=== PATIENT | female | born 1945 | race Caucasian/White ===

== ENCOUNTER → 2017-11-18 12:37 | Outpatient (CLI) | payer MEDICARE, SELFPAY ==
--- NOTE | 2017-11-18 12:40 | US_ITS ---
ULTRASOUND THYROID PROCEDURE: Multiple sagittal & transverse ultrasound images of the thyroid. HISTORY: Thyroid nodule follow-up COMPARISON: February 2017 thyroid ultrasound ----- FINDINGS: . Normal size glandSlightly scalloped margin RIGHT LOBE: 3.9 x 1.6 x 1.3 cm. . No nodules evident on right. LEFT LOBE: 3.8 as 1.5 x 1.1 cm. Nodule A:. Thyroid nodule measuring 1.2cm length X x 9 mm AP. Mainly solid but with the small cystic area inferior margin. . Moderate color Doppler flow towards anterior aspect of the nodule. This nodule is seen on previous study of 03/05/2017 and appears similar in size with no appreciable change. Similar hypoechoic character and overall appearance No additional nodules left lobe ISTHMUS: Thin isthmus measuring 3.5 mm the midline. IMPRESSION. Thyroid gland normal size. Left Thyroid nodule again noted with no significant change.. measured 1.2 cm maximally on today's images
== END ==
PROVIDERS: Family Provider Family Medicine; PCP Family Medicine; Visit Provider Family Medicine
DX: E04.1 Nontoxic single thyroid nodule (principal)
CPT/HCPCS: 76536

== ENCOUNTER → 2018-08-30 07:29 | Outpatient (CLI) | payer MEDICARE, SELFPAY ==
[2018-08-30 08:19] LABS: Basophils # 0.1 K/mm3 (0-0.2); Basophils % 0.9 % (0.1-2.0); Eosinophils # 0.1 K/mm3 (0.0-0.4); Eosinophils % 1.2 % (0.1-12.0); Hematocrit 43.8 % (37.0-47.0); Hemoglobin 14.6 g/dL (12.2-16.2); Lymphocytes # 2.7 K/mm3 (0.7-4.5); Mean Corpuscular HGB Conc 33.3 g/dL (31.8-35.4); Mean Corpuscular Hemoglobin 30.9 pg (27.0-31.2); Mean Corpuscular Volume 92.8 fl (81-99); Mean Platelet Volume 10.6 fl (7.4-10.4); Monocytes # 0.9 K/mm3 (0.1-1.0); Monocytes % 10.9 % (1.7-9.3); Neutrophils # 4.5 K/mm3 (1.8-7.8); Neutrophils % 53.9 % (37.0-80.0); Platelet Count 270 K/mm3 (142-424); Red Blood Count 4.72 M/mm3 (4.20-5.40); Red Cell Distribution Width 13.3 % (11.5-17.5); White Blood Count 8.3 K/mm3 (4.8-10.8)
[2018-08-30 10:25] LABS: Alanine Aminotransferase 25 U/L (12-78); Albumin/Globulin Ratio 1.1 (1.1-1.8); Alkaline Phosphatase 119 U/L (46-116); Anion Gap 16.7 mEq/L (5-15); Aspartate Amino Transferase 18 U/L (15-37); Bilirubin,Total 0.4 mg/dL (0.2-1.0); Blood Urea Nitrogen 10 mg/dL (7-18); Calcium 9.4 mg/dL (8.5-10.1); Carbon Dioxide 29 mmol/L (21.0-32.0); Chloride 99 mmol/L (98-107); Chol/HDL Ratio 3.8 (1-3.5); Cholesterol 191 mg/dL (140-200); Creatinine,Serum 0.67 mg/dL (0.55-1.02); Estimated Glomerular Filt Rate 87 ml/min (>60); GFR (African American) 105 ML/MIN (>60); Globulin 3.6 gm/dl (1.3-3.2); Glucose 99 mg/dL (74-106); HDL Cholesterol 50 mg/dL (29-89); LDL Cholesterol 109 mg/dL (0-130); Potassium 4.7 mmoL/L (3.5-5.1); Sodium 140 mmol/L (136-145); Total Protein,Serum 7.6 gm/dL (6.4-8.2); Triglycerides 161 mg/dL (30-200); VLDL Cholesterol 32 mg/dL (0-40)
[2018-08-30 10:34] LABS: Hemoglobin A1C 5.9 % (0.0-7.0)
== END ==
PROVIDERS: Visit Provider Family Medicine
DX: Z00.00 Encounter for general adult medical examination without abnormal findings (principal); I10 Essential (primary) hypertension; Z79.899 Other long term (current) drug therapy
CPT/HCPCS: 36415; 80053; 80061; 83036; 85025

== ENCOUNTER → 2018-09-06 14:08 | Outpatient (CLI) | payer MEDICARE, SELFPAY ==
--- NOTE | 2018-09-06 14:11 | CT_ITS ---
CT lung screening EXAM: CT LUNG LOW DOSE WO CONTRAST HISTORY: 114 pack year smoking history, asymptomatic for lung cancer ITS.REASON: CURRENT TOBACCO USE ORDERING PHYSICIAN: Dane Lombardi MD PATIENT AGE: 73 years COMPARISON: 02/22/2017 TECHNIQUE: The exam was performed on a GE Light Speed [address] scanner using 2.90 mGy CTDI. A low dose helical CT CHEST was performed on a multi-detector scanner. All CT scans at the facility use one or more dose reduction, viz: automated exposure control, ma/kV adjustment per patient size (including targeted exams where dose is matched to indication, i.e. head), or iterative reconstruction technique. The LDCT was performed in a facility that meets the criteria for the screening program. Data regarding this exam was submitted to ACR which is an approved registry. The order for this exam indicates that it came as a result of a lung cancer screening counseling shard decision-making visit that included all the elements required of such a visit including smoking cessation. The radiologist interpreting this exam meets the CMS criteria for the LDCT lung cancer screening program. The exam is reported using the Lung-RADS classification scale and reported to the ACR registry. NOTE: This study was performed for the specific purposes of lung cancer screening and is not an alternative to diagnostic chest CT. RADIATION DOSE: CTDI vol(CT dose Index-volume) = 2.90mG DLP (Dose Length Product) = 105.25 mGcm FINDINGS: Changes of COPD and centrilobular emphysema. 5 mm noncalcified nodule right lower lobe posteriorly not readily apparent on the previous exam nonspecific. There is prominence of the interstitium with ill-defined scattered groundglass density. 4 mm noncalcified nodule present in the left lower lobe unchanged. Calcified granuloma is present in the right upper lobe. IMPRESSION: 1. Lung RADS Category: 3, probably benign with a new 5 mm nodule in the right lower lobe 2. Other findings: COPD/centrilobular emphysema/interstitial prominence. RECOMMENDATIONS: 6 month LDCT follow-up
== END ==
PROVIDERS: PCP Family Medicine; Visit Provider Family Medicine
DX: Z12.2 Encounter for screening for malignant neoplasm of respiratory organs (principal); Z87.891 Personal history of nicotine dependence

== ENCOUNTER → 2019-08-07 07:58 | Outpatient (CLI) | payer MEDICARE, SELFPAY ==
[2019-08-07 11:43] LABS: Chloride 100 mmol/L (98-107); Sodium 140 mmol/L (136-145)
[2019-08-07 11:44] LABS: Potassium 4.7 mmoL/L (3.5-5.1)
[2019-08-07 11:46] LABS: Alanine Aminotransferase 17 U/L (12-78); Albumin Level 4.5 g/dl (3.5-5.0); Albumin/Globulin Ratio 1.5 (1.1-1.8); Alkaline Phosphatase 105 U/L (38-126); Anion Gap 15.7 mEq/L (5-15); Aspartate Amino Transferase 24 U/L (14-36); Bilirubin,Total 0.4 mg/dl (0.2-1.3); Blood Urea Nitrogen 11 mg/dl (7-17); Calcium 10.1 mg/dl (8.4-10.2); Carbon Dioxide 29 mmol/L (22.0-30.0); Chol/HDL Ratio 4.1 (1-3.5); Cholesterol 227 mg/dl (140-200); Estimated Glomerular Filt Rate 82 ml/min (>60); GFR (African American) 99 ML/MIN (>60); Glucose 109 mg/dl (74-100); HDL Cholesterol 55 mg/dl (40-60); Total Protein,Serum 7.5 g/dl (6.3-8.2); Triglycerides 197 mg/dl (30-150); VLDL Cholesterol 39 mg/dL (0-40)
[2019-08-07 11:57] LABS: Direct LDL Cholesterol 145.61 mg/dL (100-129)
[2019-08-07 12:16] LABS: Thyroid Stimulating Hormone 1.45 uIU/mL (0.465-4.68)
== END ==
PROVIDERS: Visit Provider Family Medicine
DX: Z00.00 Encounter for general adult medical examination without abnormal findings (principal); E04.1 Nontoxic single thyroid nodule; I10 Essential (primary) hypertension; Z13.1 Encounter for screening for diabetes mellitus
CPT/HCPCS: 36415; 80053; 80061; 84443

== ENCOUNTER → 2019-08-14 10:43 | Outpatient (CLI) | payer MEDICARE, SELFPAY ==
--- NOTE | 2019-08-14 10:45 | CT_ITS ---
PROCEDURE: CT CHEST WO CON CLINICAL INDICATION: PULMONARY NODULE Follow-up pulmonary nodule COMPARISON: [facility]CT[facility] LDCT FOR LUNG CA SCREEN from 02/22/[address] lung screening from 09/06/2018 TECHNIQUE: Axial images obtained with sagittal and coronal reformats. All CT scans at the facility use one or more dose reduction, viz: automated exposure control, ma/kV adjustment per patient size (including targeted exams where dose is matched to indication, i.e. head), or iterative reconstruction technique. FINDINGS: HEART AND MEDIASTINAL STRUCTURES: There are few small mediastinal lymph nodes which are not significantly changed. Normal heart size. LUNGS AND PLEURAL SPACES: COPD with centrilobular emphysema. There are some scattered areas of scarring with some mild prominence of the interstitium. The previously noted 5 mm nodule in the right lower lobe is not apparent on today's exam and could represent an area of inflammation/infection or atelectasis. There is calcified granuloma in the left lower lobe. No new nodules are evident. No central obstructing lesions. BONY STRUCTURES: Degenerative changes thoracic spine UPPER ABDOMEN: Cholelithiasis. 12 mm nodule of the right adrenal gland with an average density of -8 Hounsfield units consistent with an adenoma. There is lobularity of the left adrenal gland as well not significantly changed. ADDITIONAL FINDINGS: No other significant abnormalities. IMPRESSION: 1. Previously noted nodule in the right lower lobe is no longer apparent and may have been due to an area inflammation/infection or atelectasis. Recommend continue annual LD CT 2. COPD. 3. Cholelithiasis. 4. Right adrenal adenoma with no change in the lobularity of the left adrenal gland Dictated by: Jonathan Pizarro MD 08/17/2019 09:15 Electronically signed by Jonathan Pizarro MD in [place] 08/17/2019 09:15
== END ==
PROVIDERS: PCP Family Medicine; Visit Provider Family Medicine
DX: R91.1 Solitary pulmonary nodule (principal)
CPT/HCPCS: 71250

== ENCOUNTER → 2019-10-19 07:11 | Outpatient (CLI) | payer MEDICARE, SELFPAY ==
[2019-10-19 08:30] LABS: Alanine Aminotransferase 18 U/L (12-78); Albumin Level 4.3 g/dl (3.5-5.0); Alkaline Phosphatase 123 U/L (38-126); Aspartate Amino Transferase 23 U/L (14-36); Bilirubin,Direct 0.2 mg/dl (0.0-0.4); Bilirubin,Indirect 0.4 mg/dL (0.0-0.9); Bilirubin,Total 0.6 mg/dl (0.2-1.3); Bilirubin,Unconjugated 0.3 mg/dL (0.0-1.1); HDL Cholesterol 48 mg/dl (40-60); Total Protein,Serum 7.4 g/dl (6.3-8.2)
[2019-10-19 08:36] LABS: Triglycerides 108 mg/dl (30-150); VLDL Cholesterol 22 mg/dL (0-40)
[2019-10-19 08:41] LABS: Direct LDL Cholesterol 79.53 mg/dL (100-129)
[2019-10-19 08:50] LABS: Chol/HDL Ratio 2.6 (1-3.5); Cholesterol 127 mg/dl (140-200)
[2019-10-19 10:31] LABS: Hemoglobin A1C 5.5 % (4.0-6.0)
== END ==
PROVIDERS: Visit Provider Family Medicine
DX: R73.9 Hyperglycemia, unspecified (principal); I10 Essential (primary) hypertension; E78.5 Hyperlipidemia, unspecified
CPT/HCPCS: 36415; 80061; 80076; 83036

== ENCOUNTER → 2020-03-04 12:20 | Outpatient (CLI) | payer MEDICARE, SELFPAY ==
--- NOTE | 2020-03-04 12:29 | XR_ITS ---
PROCEDURE: XR LUMBAR SPINE MIN 4V CLINICAL INDICATION: RT SIDED SCIATICA COMPARISON: CR LS5 LUMBAR SPINE 5 VIEWS from 12/18/2014 FINDINGS: Multilevel degenerative disc disease is present from T12-S1 most severe at L5-S1. There is 3 mm anterolisthesis of L3 on L4. Marginal osteophytes are present throughout. Facet arthritic changes are noted from L1-S1. No fracture or dislocation. No lytic or blastic change. Other findings:Generalized vascular calcification. IMPRESSION: Multilevel lumbar spondylosis Dictated by: Jonathan Pizarro MD 03/04/2020 13:46 Jonathan Pizarro MD in [place] 03/04/2020 13:46
== END ==
PROVIDERS: PCP Family Medicine; Visit Provider Family Medicine
DX: M54.31 Sciatica, right side (principal)
CPT/HCPCS: 72110

== ENCOUNTER 2020-03-15 07:41 | Outpatient (RCR) | payer MEDICARE, SELFPAY ==
--- NOTE | 2020-03-15 08:47 | HMH.PTOPEV ---
PT Outpatient Evaluation Rehab PT Outpatient Evaluation Start: 03/15/20 08:13 Freq: Status: Active Protocol: Document 03/15/20 08:13 [facility] (Rec: 03/15/20 08:47 CA[facility] [id number]) Electronically Signed By Alonso Serrato, PT 03/15/20 08:13 Outpatient Therapy Subjective History Subjective History Pt reports h/o chronic LBP with recent exacerbation beginning ~3 months ago. Pt reports R > L sided LBP with intermittent R LE radicular s/ s to R knee level. Pt reports improved LBP and RLE s/s since starting 'steroids'. Chief Complaint Pain,Stiff,Paresthesia, Weakness Symptom Type Ache,Sharp,Dull Symptoms Relieved By Activity Symptoms Aggravated By Prone,Supine Prior Functional Limitations Sleeping Current Functional Limitations Housework,Sleeping Symptom Description Constant but Variable Level of pain today (0-10) 3 Pain scale - at its best (0-10) 0 Pain scale - at its worst (0-10) 10 Lumbopelvic Eval Posture Thoracic Spine Posture Standing Position Neutral Lumbar Spine Posture Standing Position Flattened Assistive device Assistive Devices None / NA Gait Observation General Gait Pattern Observation No Deviations/Normal Palapation tenderness bilateral paraspinal tenderness Yes: 2/4 buttock tenderness Yes: 1/4 Lumbar/Sacral Palpation Findings Tenderness Accessory Movement L-spine Vertebrae Accessory Movements Central P/A [place] that Elicit Symptoms L4 bilateral L5 bilateral Range of Motion Lumbar Spine Active Flexion Range of 0-70 Motion (degrees) Lumbar Spine Active Extension Range of 0-10 Motion (degrees) Left Lumbar Spine Lateral Flexion Active 0-20 Range of Motion (degrees) Right Lumbar Spine Lateral Flexion 0-20 Active Range of Motion (degrees) Lumbar Spine ROM Limitations Pain Manual Muscle Test Right Knee Extension Strength Grade 5 Normal Knee Flexion Strength Grade 4 Good Hip Flexion Strength Grade 4- Good- Extensor Hallucis Longus Strength Grade 5 Normal Ankle Dorsiflexion Strength Grade 5 Normal Gastronemius/Soleus Strength Grade 5 Normal Left Knee Extension Strength Grade 4 Good Knee Flexion Strength Grade 5 Normal Hip Flexion Strength Grade 5 Normal Extensor Hallucis Longus Strength Grade 5 Normal Ankle Dorsiflexion Strength Grade 5 Normal Gastronemius/Soleus Strength Grade 5 Normal DTR Rt Patellar 1+ Lt Patellar
== END 2020-03-15 07:45 | disposition home or self-care (01) ==
LOC: PT 07:41
PROVIDERS: PCP Family Medicine; Visit Provider Family Medicine
DX: M54.31 Sciatica, right side (principal)
CPT/HCPCS: 97010; 97014; 97110; 97163; G0283

== ENCOUNTER → 2020-11-27 15:08 | Outpatient (CLI) | payer MEDICARE, SELFPAY ==
--- NOTE | 2020-11-27 15:11 | CT_ITS ---
PROCEDURE: CT LUNG SCREENING CLINICAL INDICATION: HX OF NICOTINE DEPENDENCE Current smoker 50 pack year Hx of copd per patient. COMPARISON: CT CT CHEST WO CON from 08/14/2019 TECHNIQUE: The exam was performed on a GE Light Speed [address] scanner using 2.90 mGy CTDI. A low dose helical CT CHEST was performed on a multi-detector scanner. All CT scans at the facility use one or more dose reduction, viz: automated exposure control, ma/kV adjustment per patient size (including targeted exams where dose is matched to indication, i.e. head), or iterative reconstruction technique. The LDCT was performed in a facility that meets the criteria for the screening program. Data regarding this exam was submitted to ACR which is an approved registry. The order for this exam indicates that it came as a result of a lung cancer screening counseling shard decision-making visit that included all the elements required of such a visit including smoking cessation. The radiologist interpreting this exam meets the CMS criteria for the LDCT lung cancer screening program. The exam is reported using the Lung-RADS classification scale and reported to the ACR registry. NOTE: This study was performed for the specific purposes of lung cancer screening and is not an alternative to diagnostic chest CT. RADIATION DOSE: CTDI vol(CT dose Index-volume) = 2.90mG DLP (Dose Length Product) = mGcm FINDINGS: COPD changes. Calcified granuloma left lower lobe. No suspicious nodule identified. There are few small mediastinal lymph nodes OTHER FINDINGS: No change small adrenal nodules. IMPRESSION: Lung-RADS Category 1 Negative Follow-up: Continue annual screening with LDCT in 12 months Dictated by: Jonathan Pizarro MD 12/03/2020 09:52 Jonathan Pizarro MD in [place] 12/03/2020 09:52
== END ==
PROVIDERS: PCP Family Medicine; Visit Provider Family Medicine
DX: Z87.891 Personal history of nicotine dependence (principal); Z12.2 Encounter for screening for malignant neoplasm of respiratory organs
CPT/HCPCS: 71271

== ENCOUNTER → 2022-07-28 07:17 | Outpatient (CLI) | payer MEDICARE, SELFPAY ==
[2022-07-28 08:28] LABS: Chloride 103 mmol/L (98-107); Hemoglobin A1C 5.7 % (4.0-6.0); Potassium 3.9 mmoL/L (3.5-5.1); Sodium 140 mmol/L (136-145)
[2022-07-28 08:31] LABS: Alanine Aminotransferase 21 U/L (12-78); Albumin Level 4.5 g/dl (3.5-5.0); Albumin/Globulin Ratio 1.5 (1.1-1.8); Alkaline Phosphatase 112 U/L (38-126); Anion Gap 10.9 mEq/L (5-15); Aspartate Amino Transferase 29 U/L (14-36); Bilirubin,Total 0.4 mg/dl (0.2-1.3); Blood Urea Nitrogen 10 mg/dl (7-17); Carbon Dioxide 30 mmol/L (22.0-30.0); Cholesterol 161 mg/dl (140-200); Estimated Glomerular Filt Rate 97 ml/min (>60); GFR (African American) 118 ML/MIN (>60); Total Protein,Serum 7.5 g/dl (6.3-8.2); Triglycerides 146 mg/dl (30-150); VLDL Cholesterol 29 mg/dL (0-40)
[2022-07-28 08:32] LABS: Calcium 9.5 mg/dl (8.4-10.2); Chol/HDL Ratio 2.8 (1-3.5); Glucose 98 mg/dl (74-100); HDL Cholesterol 58 mg/dl (40-60)
[2022-07-28 08:42] LABS: Direct LDL Cholesterol 83.58 mg/dL (100-129)
== END ==
PROVIDERS: PCP Family Medicine; Visit Provider Family Medicine
DX: Z00.00 Encounter for general adult medical examination without abnormal findings (principal); E78.5 Hyperlipidemia, unspecified; E04.1 Nontoxic single thyroid nodule; Z79.899 Other long term (current) drug therapy
CPT/HCPCS: 36415; 80053; 80061; 82043; 82570; 83036; 84443

== ENCOUNTER → 2022-09-22 11:00 | Outpatient (CLI) | payer MEDICARE, SELFPAY | PROVIDERS: PCP Family Medicine; Visit Provider Family Medicine | DX: R00.2 Palpitations (principal) | CPT/HCPCS: 93225; 93226 ==

== ENCOUNTER 2023-08-12 10:41 | Outpatient (CLI) | payer MEDICARE, SELFPAY ==
--- NOTE | 2023-08-12 10:48 | CT_ITS ---
FINAL REPORT TECHNIQUE: Thin section axial images were obtained from the lung apices to the upper abdomen by computed tomography. Reformatted images were obtained and reviewed. This study was performed with techniques to keep radiation doses al low as reasonably achievable (ALARA). Individualized dose reduction techniques using automated exposure control or adjustment of mA and/or kV according to the patient's size were employed. CLINICAL HISTORY: HISTORY OF NICOTINE current smoker 1-2 ppd x 57 years COMPARISON: None FINDINGS: CHEST CT LOW DOSE 76-year-old female, current smoker, 100+ pack year history. CTDI vol (mGy): 2.9 DLP (mGy-cm): 98.47 There is no axillary adenopathy. There is no mediastinal or hilar mass or adenopathy. The heart is normal in size. There is no pericardial or pleural effusion. There is mild emphysema and mild pulmonary scarring. Lung window images demonstrate no suspicious infiltrate or nodule. Several calcified granulomas are present in the left hemithorax. Limited images of the upper abdomen are unremarkable. IMPRESSION: Lung-RADS category 1. Recommend 12 month follow up low dose chest CT. Reviewed, Interpreted and Dictated by Jose Eduardo Morrison III, MD Transcribed by Michelle Ramos Authenticated and [facility]
== END 2023-08-12 23:59 ==
LOC: RAD 10:42
PROVIDERS: PCP Family Medicine; Visit Provider Family Medicine
DX: Z87.891 Personal history of nicotine dependence (principal)
CPT/HCPCS: 71271

== ENCOUNTER 2024-09-21 08:21 | Outpatient (CLI) | payer MEDICARE, SELFPAY ==
--- NOTE | 2024-09-21 08:23 | CT_ITS ---
FINAL REPORT TECHNIQUE: Thin section axial images were obtained through the lungs using a low-dose technique per lung cancer screening protocol. Reconstruction images were obtained using the axial data. Exam was performed using dose reduction technique. This study was performed with techniques to keep radiation doses as low as reasonably achievable (ALARA). Individualized dose reduction techniques using automated exposure control or adjustment of mA and/or kV according to the patient's size were employed. CLINICAL HISTORY: HX OF TOBACCO SMOKES 1 1/2 PKS PER DAY X 50 YRS COPD COMPARISON: 08/12/2023 FINDINGS: CTDLvol: 2.90 DLP: 108.12 Current smoker 75 pack year history Lungs: No acute pulmonary abnormality. Mild changes of emphysema are noted. There is evidence of prior granulomatous disease. There is a 3 mm nodule along the left major fissure, new since the prior CT of 2023. This nodule is best seen on image #53 of series 4. No additional nodules are identified. Lymph nodes: No thoracic lymphadenopathy. Mediastinum: Heart size is normal. Pleura/pericardium: No pleural or pericardial effusion. Other: There is a stable small right adrenal nodule. IMPRESSION: New 3 mm nodule along the left major fissure as described. Lung RADS: 2 Recommendation: 12-month follow-up LDCT. Reviewed, Interpreted and Dictated by Bee Torres MD Transcribed by Michelle Ramos Authenticated and [facility]
--- OUTSIDE RECORDS SUMMARY | 2024-09-21 08:24 | XMS_ITS ---
Author Organization Unknown Allergies, Adverse Reactions and Alerts Date IsAllergic OnsetDate Allergen Reaction Type Severity Zeke rgyCode Legacyallergictoid ReactionCode ReactionCodeSystemID 07/26 00:00 :00 1 cloNIDine Stomach cramps Side Effec ts [id number] 07/05 00:00 :00 1 cloNIDine Stomach cramps Side Effec ts [id number] 06/19 00:00 :00 1 cloNIDine Stomach cramps Side Effec ts [id number] 05/01 00:00 :00 1 cloNIDine Stomach cramps Side Effec ts [id number] 04/12 00:00 :00 1 cloNIDine Stomach cramps Side Effec ts [id number] 04/12 00:00 :00 1 cloNIDine Stomach cramps Side Effec ts [id number] 04/12 00:00 :00 1 cloNIDine Stomach cramps Side Effec ts [id number] 01/31 00:00 :00 1 cloNIDine Stomach cramps Side Effec ts [id number] 01/11 00:00 :00 1 cloNIDine Stomach cramps Side Effec ts [id number] 01/02 00:00 :00 1 cloNIDine Stomach cramps Side Effec ts [id number] 11/10 00:00 :00 1 cloNIDine Stomach cramps Side Effec ts [id number] 09/23 00:00 :00 1 cloNIDine Stomach cramps Side Effec ts [id number]
== END 2024-09-21 23:59 | disposition home or self-care (01) ==
LOC: RAD 08:22
PROVIDERS: PCP Family Medicine; Visit Provider Family Medicine
DX: F17.210 Nicotine dependence, cigarettes, uncomplicated (principal)
CPT/HCPCS: 71271